=== PATIENT | male | born 1940 ===

== ENCOUNTER 2021-01-21 06:53 | Day surgery (SDC) | payer OTHER ==
[~2021-01-21 06:53] MED LIST: LEVOTHYROXINE25 MCG PO; LIPITOR20 MG PO; METFORMIN HCL500 M3 PO; ZESTRIL40 M1 PO
== END 2021-01-21 15:45 | disposition home or self-care (01) ==
LOC: CIR.AMB 06:53
PROVIDERS: ATTEND Colon & Rectal Surgery
DX: C20 Malignant neoplasm of rectum (principal); Z20.822 Contact with and (suspected) exposure to COVID-19
CPT/HCPCS: 36561; C1751

== ENCOUNTER 2021-08-12 08:35 | Day surgery (SDC) | payer OTHER | END 2021-08-12 14:50 | disposition home or self-care (01) | LOC: AMB-ENDOS 08:35 | PROVIDERS: ATTEND Colon & Rectal Surgery | DX: K62.89 Other specified diseases of anus and rectum (principal); K60.1 Chronic anal fissure; Z20.822 Contact with and (suspected) exposure to COVID-19 ==

== ENCOUNTER 2021-12-14 11:14 | Inpatient (IN) | payer OTHER ==
[~2021-12-14] VITALS: Ht 167.6 cm; Wt 83.9 kg
[2021-12-14] MEDS ORDERED: GABAPENTIN100 M2 PO (15:47)
[2021-12-14] MEDS ORDERED: ZOLOFT25 MG PO (15:47)
[2021-12-16] MEDS ORDERED: ATORVASTATIN CA10 MG (07:59)
[2021-12-16] MEDS ORDERED: MEGESTROL ACETA40 MG (07:59)
[2021-12-16] MEDS ORDERED: SEMGLEE100 UNIT/1 (07:59)
[2021-12-25] MEDS ORDERED: SEMGLEE100 UNIT/1 SUBCUTANEO (12:44)
[2021-12-25] MEDS ORDERED: SIMETHICONE125 M1 PO (12:44)
[2021-12-25] MEDS ORDERED: MELATONIN10 M2 PO (12:44)
[2021-12-25] MEDS ORDERED: SERTRALINE HCL50 MG PO (12:44)
[2021-12-25] MEDS ORDERED: GABAPENTIN300 MG PO (12:44)
[2021-12-25] MEDS ORDERED: ZESTRIL40 M1 PO (12:44)
[2021-12-25] MEDS ORDERED: ATORVASTATIN CA10 MG PO (12:44)
[2021-12-25] MEDS ORDERED: METFORMIN HCL850 MG PO (12:44)
[2021-12-25] MEDS ORDERED: INTESTINEX680 M1 PO (12:44)
[2021-12-25] MEDS ORDERED: LEVOTHYROXINE25 MCG PO (12:44)
== END 2021-12-25 15:17 | disposition home or self-care (01) | DRG 330 ==
LOC: SURH 12-16 05:30 → O/R 12-16 05:30 → SURH 12-16 09:00
PROVIDERS: ADMIT Colon & Rectal Surgery; ATTEND Colon & Rectal Surgery
PROC: 0DBP4ZZ Excision of Rectum, Percutaneous Endoscopic Approach (ICD-10-PCS; 2021-12-16)
PROC: 0DTN4ZZ Resection of Sigmoid Colon, Percutaneous Endoscopic Approach (ICD-10-PCS; 2021-12-16)
PROC: 07BB4ZZ Excision of Mesenteric Lymphatic, Percutaneous Endoscopic Approach (ICD-10-PCS; 2021-12-16)
PROC: 07BC4ZZ Excision of Pelvis Lymphatic, Percutaneous Endoscopic Approach (ICD-10-PCS; 2021-12-16)
PROC: 0D1B4Z4 Bypass Ileum to Cutaneous, Percutaneous Endoscopic Approach (ICD-10-PCS; principal; 2021-12-16 09:00)
DX: C19 Malignant neoplasm of rectosigmoid junction (principal); K92.1 Melena; D36.0 Benign neoplasm of lymph nodes; I11.9 Hypertensive heart disease without heart failure; E03.8 Other specified hypothyroidism; Z20.822 Contact with and (suspected) exposure to COVID-19

== ENCOUNTER 2021-12-30 15:34 | Inpatient (IN) | payer OTHER ==
[~2021-12-30] VITALS: Ht 165.1 cm; Wt 81.6 kg
[~2021-12-30 15:34] MED LIST changes: +ATORVASTATIN CA10 MG; +ATORVASTATIN CA10 MG PO; +GABAPENTIN100 M2 PO; +GABAPENTIN300 MG PO; +INTESTINEX680 M1 PO; +MEGESTROL ACETA40 MG; +MELATONIN10 M2 PO; +METFORMIN HCL850 MG PO; +SEMGLEE100 UNIT/1; +SEMGLEE100 UNIT/1 SUBCUTANEO; +SERTRALINE HCL50 MG PO; +SIMETHICONE125 M1 PO; +ZOLOFT25 MG PO
[2022-01-06] MEDS ORDERED: ABANEU-SL TABL1 EACH SL (11:44)
[2022-01-06] MEDS ORDERED: GABAPENTIN100 M2 PO (11:44)
[2022-01-06] MEDS ORDERED: SERTRALINE HCL50 MG PO (11:44)
[2022-01-06] MEDS ORDERED: MELATONIN10 M2 PO (11:44)
[2022-01-06] MEDS ORDERED: AMLODIPINE BESY10 MG PO (11:44)
[2022-01-06] MEDS ORDERED: INTEGRA F CAPS1 EACH PO (11:44)
[2022-01-06] MEDS ORDERED: METFORMIN HCL850 MG PO (11:44)
[2022-01-06] MEDS ORDERED: ATORVASTATIN CA10 MG PO (11:44)
[2022-01-06] MEDS ORDERED: LEVOTHYROXINE25 MCG PO (11:44)
[2022-01-06] MEDS ORDERED: INTESTINEX680 M1 PO (11:44)
[2022-01-06] MEDS ORDERED: IMODIUM A-D2 MG PO (11:44)
[2022-01-06] MEDS ORDERED: SEMGLEE100 UNIT/1 SUBCUTANEO (11:44)
[2022-01-06] MEDS ORDERED: TAMS0.4C PO (11:44)
== END 2022-01-06 15:53 | disposition home or self-care (01) | DRG 683 ==
LOC: ER 15:34 → SEC-K 12-31 10:48 → MEDI 12-31 10:48 → SEC-K 12-31 15:36 → SURG 12-31 23:36
PROVIDERS: ADMIT Internal Medicine Geriatric Medicine; ATTEND Internal Medicine Geriatric Medicine
PROC: 02HV33Z Insertion of Infusion Device into Superior Vena Cava, Percutaneous Approach (ICD-10-PCS; principal; 2022-01-01)
DX: N17.8 Other acute kidney failure (principal); E87.1 Hypo-osmolality and hyponatremia; C20 Malignant neoplasm of rectum; E86.0 Dehydration; D64.9 Anemia, unspecified; I95.89 Other hypotension; R19.8 Other specified symptoms and signs involving the digestive system and abdomen; E88.09 Other disorders of plasma-protein metabolism, not elsewhere classified; I11.9 Hypertensive heart disease without heart failure; E11.40 Type 2 diabetes mellitus with diabetic neuropathy, unspecified; Z79.4 Long term (current) use of insulin; E03.8 Other specified hypothyroidism; Z20.822 Contact with and (suspected) exposure to COVID-19; Z93.2 Ileostomy status

== ENCOUNTER 2022-01-10 17:30 | Emergency (ER) | payer OTHER ==
[~2022-01-10] VITALS: Ht 167.6 cm; Wt 74.4 kg
[~2022-01-10 17:30] MED LIST changes: +ABANEU-SL TABL1 EACH SL; +AMLODIPINE BESY10 MG PO; +IMODIUM A-D2 MG PO; +INTEGRA F CAPS1 EACH PO; +TAMS0.4C PO
[2022-01-10] MEDS ORDERED: MELATONIN10 M5 PO (17:52)
[2022-01-10] MEDS ORDERED: NORVASC10 MG PO (17:53)
== END 2022-01-10 19:10 | disposition home or self-care (01) ==
LOC: ER 17:30
DX: B02.23 Postherpetic polyneuropathy (principal); E11.9 Type 2 diabetes mellitus without complications; Z79.4 Long term (current) use of insulin

== ENCOUNTER 2022-04-15 07:29 | Outpatient (CLI) | payer OTHER ==
[~2022-04-15 07:29] MED LIST changes: +MELATONIN10 M5 PO; +NORVASC10 MG PO
== END 2022-04-15 07:33 | disposition home or self-care (01) ==
LOC: RX STUDY 07:29
DX: C20 Malignant neoplasm of rectum (principal)

== ENCOUNTER 2022-06-14 09:45 | Inpatient (IN) | payer OTHER ==
[~2022-06-14] VITALS: Ht 167.6 cm; Wt 74.8 kg
[2022-06-14] MEDS ORDERED: GABAPENTIN100 M2 PO (13:41)
[2022-06-16] MEDS ORDERED: ATORVASTATIN CA10 MG (08:00)
[2022-06-16] MEDS ORDERED: LISINOPRIL40 MG (08:00)
[2022-06-16] MEDS ORDERED: SEMGLEE (Y100 UNIT/1 (08:00)
[2022-06-16] MEDS ORDERED: METFORMIN HCL850 M1 (08:00)
[2022-06-24] MEDS ORDERED: INTEGRA F CAPS1 EACH PO (14:56)
[2022-06-24] MEDS ORDERED: LEVOTHYROXINE25 MCG PO (14:56)
[2022-06-24] MEDS ORDERED: MELATONIN10 M5 PO (14:56)
[2022-06-24] MEDS ORDERED: ZINC SULFATE50 M1 PO (14:56)
[2022-06-24] MEDS ORDERED: VITAMIN C500 M1 PO (14:56)
[2022-06-24] MEDS ORDERED: TAMS0.4C PO (14:56)
[2022-06-24] MEDS ORDERED: ATORVASTATIN CA10 MG PO (14:56)
[2022-06-24] MEDS ORDERED: SERTRALINE HCL50 MG PO (14:56)
[2022-06-24] MEDS ORDERED: APETIGEN P12.5 MG/15 PO (14:56)
[2022-06-24] MEDS ORDERED: ABANEU-SL TABL1 EACH SL (14:56)
[2022-06-24] MEDS ORDERED: CEFADROXIL500 MG PO (14:56)
== END 2022-06-24 23:19 | disposition home or self-care (01) | DRG 347 ==
LOC: O/R 06-16 05:50 → SURG 06-16 09:45 → SURH 06-16 18:19 → O/R 06-16 20:28 → SURG 06-17 14:35 → MEDJ 06-21 14:49
PROVIDERS: ADMIT Colon & Rectal Surgery; ATTEND Colon & Rectal Surgery
PROC: 0DBB4ZZ Excision of Ileum, Percutaneous Endoscopic Approach (ICD-10-PCS; principal; 2022-06-16 10:30)
PROC: 8E0ZXY6 Isolation (ICD-10-PCS; 2022-06-21)
PROC: 4A12X4Z Monitoring of Cardiac Electrical Activity, External Approach (ICD-10-PCS; 2022-06-23)
DX: Z43.2 Encounter for attention to ileostomy (principal); U07.1 COVID-19; C20 Malignant neoplasm of rectum; K92.1 Melena; N17.8 Other acute kidney failure; Z74.01 Bed confinement status; I11.9 Hypertensive heart disease without heart failure; E11.40 Type 2 diabetes mellitus with diabetic neuropathy, unspecified; Z79.4 Long term (current) use of insulin; Z92.21 Personal history of antineoplastic chemotherapy